=== PATIENT | female | born 1985 | race Caucasian/White ===

== ENCOUNTER 2024-02-08 09:04 | Outpatient (CLI) | payer MEDICAID, SELFPAY | END 2024-02-08 09:05 | disposition home or self-care (01) | PROVIDERS: PCP Family Medicine; Visit Provider Family Medicine | DX: Z00.00 Encounter for general adult medical examination without abnormal findings (principal); E66.9 Obesity, unspecified; E78.5 Hyperlipidemia, unspecified; R03.0 Elevated blood-pressure reading, without diagnosis of hypertension; E28.2 Polycystic ovarian syndrome; F41.9 Anxiety disorder, unspecified; F32.A Depression, unspecified | CPT/HCPCS: 80053; 80061; 84443 ==

== ENCOUNTER 2024-03-27 07:53 | Outpatient (CLI) | payer MEDICAID, SELFPAY | END 2024-03-27 07:54 | disposition home or self-care (01) | LOC: NFLDREF 03-28 06:39 | PROVIDERS: PCP Family Medicine; Referring Provider Family Medicine; Visit Provider Family Medicine | DX: I10 Essential (primary) hypertension (principal) | CPT/HCPCS: 80048 ==

== ENCOUNTER 2024-06-10 07:50 | Outpatient (CLI) | payer MEDICAID, SELFPAY | END 2024-06-10 07:51 | disposition home or self-care (01) | LOC: NFLDREF 06-11 11:39 | PROVIDERS: PCP Family Medicine; Referring Provider Family Medicine; Visit Provider Family Medicine | DX: E78.5 Hyperlipidemia, unspecified (principal); I10 Essential (primary) hypertension; R73.03 Prediabetes | CPT/HCPCS: 80053; 80061 ==

== ENCOUNTER 2025-03-11 07:45 | Outpatient (CLI) | payer MEDICAID, SELFPAY | END 2025-03-11 07:46 | disposition home or self-care (01) | LOC: NFLDREF 03-12 00:54 | PROVIDERS: PCP Family Medicine; Referring Provider Family Medicine; Visit Provider Family Medicine | DX: E78.5 Hyperlipidemia, unspecified (principal); I10 Essential (primary) hypertension; R73.03 Prediabetes | CPT/HCPCS: 80053; 80061 ==

== ENCOUNTER 2025-03-18 07:56 | Outpatient (CLI) | payer MEDICAID, SELFPAY ==
[2025-03-21 08:18] LABS: HPV Source Cervical/Vag; HPV, High Risk by TMA Not Detected
== END 2025-03-18 07:57 | disposition home or self-care (01) ==
PROVIDERS: PCP Family Medicine; Visit Provider Family Medicine
DX: N87.0 Mild cervical dysplasia (principal); Z12.4 Encounter for screening for malignant neoplasm of cervix; Z11.51 Encounter for screening for human papillomavirus (HPV)
CPT/HCPCS: 87624; 87625; 88141; 88142